=== PATIENT | male | born 1950 | race Caucasian/White ===

== ENCOUNTER 2020-06-02 17:47 | Inpatient (IN) | payer MEDICARE, OTHER ==
[~2020-06-02] VITALS: Ht 182.9 cm; Wt 132.8 kg
[2020-06-02] MEDS ORDERED: BIMA01SOL OU ×2 (18:10→22:43)
[2020-06-02] MEDS ORDERED: TRUL0.5I SC ×2 (18:10→22:43)
[2020-06-02] MEDS ORDERED: ATOR1TAB21 PO ×2 (18:10→22:42)
[2020-06-02] MEDS ORDERED: ASPI81CH33 PO (18:10)
[2020-06-02] MEDS ORDERED: VENTAER INH (18:10)
[2020-06-02] MEDS ORDERED: GLYB125TA PO ×4 (18:10→22:46)
[2020-06-02] MEDS ORDERED: METF10004 PO (18:10)
[2020-06-02] MEDS ORDERED: TIMO0.5S39 OU (18:10)
[2020-06-02] MEDS ORDERED: FOSI20TA79 PO ×2 (18:10→22:43)
[2020-06-02] MEDS ORDERED: INSULANT SC (18:10)
[2020-06-02 19:24] LABS: BASO # 0.1 10^3/uL (0.0-0.2); BASO % 0.5 % (0.0-1.0); EOS # 0.1 10^3/uL (0.0-0.5); HEMATOCRIT 44.3 % (42.0-52.0); HEMOGLOBIN 14.7 g/dl (13.5-17.5); LYMPH # 1.9 10^3/uL (1.5-5.0); LYMPH % 18.3 % (24.0-44.0); MEAN CORPUSCULAR HGB CONC 33.2 g/dl (32.0-36.5); MEAN CORPUSCULAR VOLUME 84.4 fl (80.0-96.0); MONO % 9.4 % (0.0-5.0); NEUTROPHILS # 7.2 10^3/uL (1.5-8.5); NEUTROPHILS % 70.6 % (36.0-66.0); PLATELET COUNT, AUTOMATED 189 10^3/uL (150-450); RED BLOOD COUNT 5.25 10^6/uL (4.30-6.10); WHITE BLOOD COUNT 10.1 10^3/uL (4.0-10.0)
[2020-06-02 19:55] LABS: ALBUMIN 3.9 GM/DL (3.2-5.2); ALT/SGPT 57 U/L (12-78); BILIRUBIN,DIRECT 0.2 MG/DL (0.0-0.2); BILIRUBIN,TOTAL 0.8 MG/DL (0.2-1.0); BLOOD UREA NITROGEN 10 MG/DL (7-18); CALCIUM LEVEL 9.7 MG/DL (8.8-10.2); CARBON DIOXIDE LEVEL 30 MEQ/L (21-32); CHLORIDE LEVEL 95 MEQ/L (98-107); CREATININE FOR GFR 0.75 MG/DL (0.70-1.30); GLOMERULAR FILTRATION RATE > 60.0 (>49); GLUCOSE, FASTING 210 MG/DL (70-100); LIPASE 2731 U/L (73-393); POTASSIUM SERUM 4.5 MEQ/L (3.5-5.1); SODIUM LEVEL 132 MEQ/L (136-145); TOTAL PROTEIN 7.7 GM/DL (6.4-8.2)
[2020-06-02] MEDS ORDERED: NS 1,000 ML IV ONE (20:45)
[2020-06-02] MEDS ORDERED: ISOVUE-370 76% 100ML VIAL As Ordered ONE (20:53)
[2020-06-02 22:19] LABS: TRIGLYCERIDES LEVEL 159 MG/DL (<150)
[2020-06-02] MEDS ORDERED: ASPI-161 PO (22:42)
[2020-06-02] MEDS ORDERED: INSULADS SC (22:46)
[2020-06-02] MEDS ORDERED: ACET650T61 PO (22:46)
[2020-06-02] MEDS ORDERED: TIMO0.5S3 OU (22:46)
[2020-06-02] MEDS ORDERED: METF-877 PO (22:46)
--- NOTE | 2020-06-02 23:12 | REPVR ---
PROCEDURE INFORMATION: Exam: CT Abdomen And Pelvis With Contrast Exam date and time: 06/02/2020 10:31 PM Age: 70 years old Clinical indication: Abdominal pain; Localized; Left; Additional info: L sided abd pain, elevated lipase R/O pancreatitis TECHNIQUE: Imaging protocol: Computed tomography of the abdomen and pelvis with intravenous contrast. Radiation optimization: All CT scans at this facility use at least one of these dose optimization techniques: automated exposure control; mA and/or kV adjustment per patient size (includes targeted exams where dose is matched to clinical indication); or iterative reconstruction. Contrast material: ISO; Contrast volume: 100 ml; Contrast route: INTRAVENOUS (IV); COMPARISON: No relevant prior studies available. FINDINGS: Liver: The liver attenuation is 50 Hounsfield units and the spleen is 86 Hounsfield units. Gallbladder and bile ducts: Normal. No calcified stones. No ductal dilation. Pancreas: Slight peripancreatic induration which is greatest about the tail extending along the left anterior pararenal fascia. Spleen: Normal. No splenomegaly. Adrenal glands: Normal. No mass. Kidneys and ureters: There are some left renal cysts measuring up to 14 mm with a Hounsfield measurement of 12 consistent with simple or Bosniak 1 cyst. No follow-up imaging is recommended. Stomach and bowel: Minimal sigmoid diverticulosis without diverticulitis. Appendix: Surgical clips in the right lower quadrant. The appendix is not seen and likely reflect prior appendectomy. Intraperitoneal space: Unremarkable. No free air. No significant fluid collection. Vasculature: There is minimal atherosclerotic calcification of the abdominal aorta. Lymph nodes: Unremarkable. No enlarged lymph nodes. Urinary bladder: Unremarkable as visualized. Reproductive: Unremarkable as visualized. Bones/joints: Bilateral spondylolysis of L5. Moderate degenerative spurring in the lower thoracic spine and to a lesser degree in the lumbar spine. Soft tissues: Unremarkable. IMPRESSION: 1. Minimal evidence of pancreatitis centered on the pancreatic tail. 2. Mild fatty infiltration of the liver. 3. Minimal sigmoid diverticulosis without diverticulitis. 4. Degenerative changes of the lumbar spine with bilateral spondylolysis of L5. COMMENTS: Consistent with the [employer]'s Incidental Findings Committee white paper (J Am Kelly Radiol 2018): Any incidental renal lesion less than 1 cm or classified as too small to characterize, or any incidental cystic renal lesion characterized as simple-appearing, is likely benign. No follow-up imaging is recommended for these lesions per consensus recommendations based on imaging criteria. Electronically signed by: Theo Narvaez On 06/02/2020 23:12:02 PM
[2020-06-03] MEDS ORDERED: ONDANSETRON 4MG/2ML VIAL IV PRN (00:30)
[2020-06-03] MEDS ORDERED: PERCOCET 5MG/325MG TAB PO PRN ×2 (00:30)
[2020-06-03] MEDS ORDERED: NALOXONE INJ 0.4MG/1ML VIAL (J2310 PER 1MG) IV PRN (00:30)
[2020-06-03] MEDS ORDERED: NS 1,000 ML IV ONE (00:30)
[2020-06-03] MEDS ORDERED: PERCOCET 5MG/325MG TAB PO ONE (00:30)
[2020-06-03] MEDS ORDERED: MORPHINE 4 MG/ML 1ML VIAL/SYRINGE (J2270) IV PRN (00:30)
[2020-06-03] MEDS ORDERED: KETOROLAC 30 MG/ML 1ML VIAL IV ONE (00:30)
--- NOTE | 2020-06-03 01:18 | HPEPDOC ---
[facility] Medical History & Physical Date of Admission Jun 03, 2020 Date of Service: Jun 03, 2020 History and Physical CHIEF COMPLAINT: Left upper quadrant abdominal pain since 10 PM last night HISTORY OF PRESENT ILLNESS: 70-year-old male with history of morbid obesity, BMI of 39.6. Dyslipidemia presents to emergency room with acute onset of left-sided upper quadrant abdominal pain described as sharp and constant without any radiation, without associated nausea, vomiting, constipation, fever, chills, hematuria, dysuria, urgency, frequency. After taking 2 tablets of Tylenol. Patient has no improvement in the pain prompting him to come to the emergency room. Patient had dinner earlier in the evening, went to do computer work and after a while, developed the pain. No prior episodes in the past. He denies history of gallstones or alcohol abuse. No spider bites. No history of traumatic injury to the left upper quadrant. No history of pancreatic divisum. No new medications CT abdpelvis: mild pancreatitis. lipase 2731. Hospitalist was asked to admit for pancreatitis. PAST MEDICAL HISTORY: Obesity, BMI of 39.6. Dyslipidemia . Chronic back pain. sigmoid diverticulosis, left renal cysts,Bilateral spondylolysis of L5. Moderate degenerative spurring in the lower thoracic spine and to a lesser degree in the lumbar spine. PAST SURGICAL HISTORY: Appendectomy, back surgery SOCIAL HISTORY: , retired hand trucker. Smokes one and half pack of cigarettes since he was a teenager. No alcohol use currently. Denies recreational drug use. Full code FAMILY HISTORY: Mother and father in their 80s. Mother had cancer, unknown type. Father had cancer, unknown type ALLERGIES: Please see below. REVIEW OF SYSTEMS: 10 point system review negative aside from positive findings in HPI HOME MEDICATIONS: Please see below. PHYSICAL EXAMINATION: VITAL SIGNS: See below GENERAL APPEARANCE: Awake, alert, oriented 3, no respiratory distress. No conversational dyspnea. Appears his stated age, cooperative HEENT: Anicteric. No jaundice. Pupils equally round, reactive to light and accommodation. Extra muscles are intact. No cervical lymphadenopathy, thyromegaly or jugular venous distention CARDIOVASCULAR: S1, S2, sinus rhythm, no murmurs, rubs or gallops. Nondisplaced point of maximal impulse LUNGS: Air entry is equal bilaterally. No kyphoscoliosis. Clear to auscultation bilaterally. No adventitious breath sounds. No rales ABDOMEN: Obese, soft, tender left upper quadrant epigastric region. No rebound, guarding no hepatosplenomegaly. No fluid wave. No CVA tenderness EXTREMITIES: No cyanosis, clubbing or pitting edema LABORATORY DATA: See below. IMAGING: Exam: CT Abdomen And Pelvis With Contrast Exam date and time: 06/02/2020 10:31 PM Age: 70 years old Clinical indication: Abdominal pain; Localized; Left; Additional info: L sided abd pain, elevated lipase R/O pancreatitis TECHNIQUE: Imaging protocol: Computed tomography of the abdomen and pelvis with intravenous contrast. Radiation optimization: All CT scans at this facility use at least one of these dose optimization techniques: automated exposure control; mA and/or kV adjustment per patient size (includes targeted exams where dose is matched to clinical indication); or iterative reconstruction. Contrast material: ISO; Contrast volume: 100 ml; Contrast route: INTRAVENOUS (IV); COMPARISON: No relevant prior studies available. FINDINGS: Liver: The liver attenuation is 50 Hounsfield units and the spleen is 86 Hounsfield units. Gallbladder and bile ducts: Normal. No calcified stones. No ductal dilation. Pancreas: Slight peripancreatic induration which is greatest about the tail extending along the left anterior pararenal fascia. Spleen: Normal. No splenomegaly. Adrenal glands: Normal. No mass. Kidneys and ureters: There are some left renal cysts measuring up to 14 mm with a Hounsfield measurement of 12 consistent with simple or Bosniak 1 cyst. No follow-up imaging is recommended. Stomach and bowel: Minimal sigmoid diverticulosis without diverticulitis. Appendix: Surgical clips in the right lower quadrant. The appendix is not seen and likely reflect prior appendectomy. Intraperitoneal space: Unremarkable. No free air. No significant fluid collection. Vasculature: There is minimal atherosclerotic calcification of the abdominal aorta. Lymph nodes: Unremarkable. No enlarged lymph nodes. Urinary bladder: Unremarkable as visualized. Reproductive: Unremarkable as visualized. Bones/joints: Bilateral spondylolysis of L5. Moderate degenerative spurring in the lower thoracic spine and to a lesser degree in the lumbar spine. Soft tissues: Unremarkable. IMPRESSION: 1. Minimal evidence of pancreatitis centered on the pancreatic tail. 2. Mild fatty infiltration of the liver. 3. Minimal sigmoid diverticulosis without diverticulitis. 4. Degenerative changes of the lumbar spine with bilateral spondylolysis of L5. COMMENTS: Consistent with the [employer]'s Incidental Findings Committee white paper (J Am Kelly Radiol 2018): Any incidental renal lesion less than 1 cm or classified as too small to characterize, or any incidental cystic renal lesion characterized as simple-appearing, is likely benign. No follow-up imaging is recommended for these lesions per consensus recommendations based on imaging criteria. Electronically signed by: Theo Narvaez On 06/02/2020 23:12:02 PM MICROBIOLOGY: Please see below. ASSESSMENT/PLAN: 70-year-old male with history of morbid obesity, BMI of 39.6. Dyslipidemia presents to emergency room with acute onset of left-sided upper quadrant abdominal pain described as sharp and constant without any radiation, without associated nausea, vomiting, constipation, fever, chills, hematuria, dysuria, urgency, frequency. After taking 2 tablets of Tylenol. Patient has no improvement in the pain prompting him to come to the emergency room. Patient had dinner earlier in the evening, went to do computer work and after a while, developed the pain. No prior episodes in the past. He denies history of gallst ones or alcohol abuse. No spider bites. No history of traumatic injury to the left upper quadrant. No history of pancreatic divisum. No new medications CT abdpelvis: mild pancreatitis. lipase 2731. Hospitalist was asked to admit for pancreatitis. . Acute pancreatitis Nothing by mouth status IV fluids. Hypoglycemic protocol when necessary pain meds. Check lipid profile. Patient does not have any significant elevated bilirubin to necessitate MRCP biliary ducts appear to be within normal limits. N o gallstones noted on CT abdomen and pelvis. . Active tobacco abuse more than [id number] history of smoking tobacco cessation counseling, nicotine patch, nicotine gum as needed Morbid obesity, BMI 39.6, and probable obstructive sleep apnea Monitor with continuous pulse oximetry. In light of pain medications which could increase risks of hyper Respiratory failure and hypercarbia with respiratory acidosis. Avoid sedatives Check nocturnal oximetry. Check A1c and lipid profile , Dyslipidemia Resume home medications. Check lipid profile DVT prophylaxis. Lovenox subcutaneous daily Diet nothing by mouth CODE STATUS full code Vital Signs Vital Signs Date Time Temp Pulse Resp B/P (MAP) Pulse Ox O2 Delivery O2 Flow Rate FiO2 06/02/20 20:32 06/02/20 17:48 98.1 94 20 96 Room Air Laboratory Data Labs 24H Laboratory Tests 2 06/02/20 18:56: Immature Granulocyte % (Auto) 0.2, Neutrophils (%) (Auto) 70.6H, Lymphocytes (%) (Auto) 18.3L, Monocytes (%) (Auto) 9.4H, Eosinophils (%) (Auto) 1.0, Basophils (%) (Auto) 0.5, Neutrophils # (Auto) 7.2, Lymphocytes # (Auto) 1.9, Monocytes # (Auto) 1.0H, Eosinophils # (Auto) 0.1, Basophils # (Auto) 0.1, Nucleated Red Blood Cells % (auto) 0.0, Urine Color STRAW, Urine Appearance CLEAR, Urine pH 6.0, Urine Specific [place] 1.009, Urine Protein 1+H, Urine Glucose (UA) 3+H, Urine Ketones NEGATIVE, Urine Blood NEGATIVE, Urine Nitrite NEGATIVE, Urine Bilirubin NEGATIVE, Urine Urobilinogen 0.2, Urine Leukocyte Esterase NEGATIVE, Urine WBC (Auto) 1, Urine RBC (Auto) 0, Urine Hyaline Casts (Auto) 0, Urine Bacteria (Auto) NEGATIVE, Urine Squamous Epithelial Cells 0, Urine Sperm (Auto) , Anion Gap 7L, Glomerular Filtration Rate > 60.0, Calcium Level 9.7, Total Bilirubin 0.8, Direct Bilirubin 0.2, Aspartate Amino Transf (AST/SGOT) 25, Alanine Aminotransferase (ALT/SGPT) 57, Alkaline Phosphatase 55, Total Protein 7.7, Albumin 3.9, Albumin/Globulin Ratio 1.0, Triglycerides Level 159H, Lipase 2731H 06/02/20 21:01: Coronavirus (COVID-19)(PCR) NEGATIVE CBC/BMP Laboratory Tests 06/02/20 18:56 Home Medications Scheduled Aspirin (Aspirin EC) 81 Mg Tablet.dr, 81 MG PO DAILY Atorvastatin Calcium (Atorvastatin Calcium) 20 Mg Tablet, 20 MG PO DAILY Bimatoprost (Lumigan) 0.01% 2.5ML Drops, 1 DROP OU QHS Dulaglutide (Trulicity) 1.5 Mg/0.5 Ml Pen.injctr, 1.5 MG SC QWEEK SATURDAY Fosinopril Sodium (Fosinopril Sodium) 20 Mg Tablet, 20 MG PO DAILY Glyburide (Glyburide) 1.25 Mg Tablet, 3.75 MG PO DAILY Glyburide (Glyburide) 1.25 Mg Tablet, 1.25 MG PO QPM Insulin Glargine (Lantus) 100 Unit/1 Ml Vial, 10 UNIT SC DAILY Metformin HCl (Metformin HCl) 1,000 Mg Tablet, 1,000 MG PO BID Timolol Maleate (Timoptic-Xe) 0.5% Pina.gel, 1 DROP OU DAILY Scheduled PRN Acetaminophen (Tylenol Arthritis) 650 Mg Tablet.er, 1,300 MG PO BID PRN for PAIN Allergies Coded Allergies: No Known Allergies (Unverified , 06/02/20) A-FIB/CHADSVASC A-FIB History Current/History of A-Fib/PAF?: No Current PO Anticoag Therapy: No Age/Risk Factor Scoring CHADSVASC: CHADSVASC Response (Comments) Value Age Risk Factor Age 65-74 years old 1 Gender Risk Factor Male 0 Hx of CHF No 0 Hx of HTN No 0 Hx of Stroke/TIA/or VTE No 0 Hx of Diabetes No 0 Hx of Vascular Disease No 0 Total 1 Treatment Treatment ordered: NONE LARRY LYON MD Jun 03, 2020 01:17
[2020-06-03] MEDS ORDERED: NICOTINE POLACRILEX 2 MG GUM PO PRN (01:30)
[2020-06-03] MEDS ORDERED: GLUCOSE 4GM CHEW TABLET PO PRN (01:30)
[2020-06-03] MEDS ORDERED: NS 1,000 ML IV SCH (01:30)
[2020-06-03] MEDS ORDERED: GLUCAGON INJ 1MG VIAL SC PRN (01:30)
[2020-06-03] MEDS ORDERED: ACETAMINOPHEN 650MG ER TAB (TYLENOL ARTHRITIS) PO PRN (01:30)
[2020-06-03] MEDS ORDERED: DEXTROSE 50% 50 ML SYRINGE IV PRN (01:30)
[2020-06-03] MEDS ORDERED: NICOTINE 14 MG/24 HR TRANSDERMAL TD ONE (01:45)
[2020-06-03] MEDS ORDERED: ENOXAPARIN 40MG/0.4ML SYRINGE (J1650 PER 10MG) SC ONE (01:45)
[2020-06-03 03:05] VITALS: BP 145/88
[2020-06-03 06:00] VITALS: BP 126/73
[2020-06-03] MEDS: HumaLOG INSULIN (NovoLOG) PER UNIT SC SCH ×3 (06:00→12:07)
[2020-06-03 06:28] LABS: BASO % 0.5 % (0.0-1.0); EOS # 0.1 10^3/uL (0.0-0.5); EOS % 1.5 % (0.0-3.0); HEMATOCRIT 41.6 % (42.0-52.0); HEMOGLOBIN 13.7 g/dl (13.5-17.5); LYMPH # 1.9 10^3/uL (1.5-5.0); MEAN CORPUSCULAR HEMOGLOBIN 28.2 pg (27.0-33.0); MEAN CORPUSCULAR HGB CONC 32.9 g/dl (32.0-36.5); MEAN CORPUSCULAR VOLUME 85.6 fl (80.0-96.0); MONO # 0.9 10^3/uL (0.0-0.8); MONO % 10.9 % (0.0-5.0); PLATELET COUNT, AUTOMATED 157 10^3/uL (150-450); RED BLOOD COUNT 4.86 10^6/uL (4.30-6.10); WHITE BLOOD COUNT 7.9 10^3/uL (4.0-10.0)
[2020-06-03 07:09] LABS: ALBUMIN 3.3 GM/DL (3.2-5.2); ALT/SGPT 45 U/L (12-78); BILIRUBIN,TOTAL 0.8 MG/DL (0.2-1.0); BLOOD UREA NITROGEN 11 MG/DL (7-18); CALCIUM LEVEL 8.5 MG/DL (8.8-10.2); CARBON DIOXIDE LEVEL 27 MEQ/L (21-32); CHLORIDE LEVEL 103 MEQ/L (98-107); CK-MB VALUE MASS 2.8 NG/ML (<3.6); CPK CREATINE PHOSPHOKINASE 173 U/L (39-308); CREATININE FOR GFR 0.62 MG/DL (0.70-1.30); GLOMERULAR FILTRATION RATE > 60.0 (>49); GLUCOSE, FASTING 198 MG/DL (70-100); LIPASE 1931 U/L (73-393); MB/CK RELATIVE INDEX 1.62 (< OR =4); POTASSIUM SERUM 3.7 MEQ/L (3.5-5.1); SODIUM LEVEL 136 MEQ/L (136-145); TOTAL PROTEIN 6.8 GM/DL (6.4-8.2); TROPONIN I < 0.02 NG/ML (< 0.10)
[2020-06-03] MEDS ORDERED: KETOROLAC 30 MG/ML 1ML VIAL IV SCH (08:00)
[2020-06-03] MEDS ORDERED: D5W/0.45% SODIUM CHLORIDE 1,000 ML IV SCH (08:30)
[2020-06-03] MEDS ORDERED: ASPIRIN 81 MG ENTERIC TAB PO SCH (09:00)
[2020-06-03] MEDS ORDERED: PANTOPRAZOLE 40MG VIAL (C9113 PER 1) IV SCH (09:00)
[2020-06-03] MEDS ORDERED: FOSINOPRIL 20 MG TAB PO SCH (09:00)
[2020-06-03] MEDS ORDERED: ATORVASTATIN 20 MG TAB PO SCH (09:00)
[2020-06-03] MEDS ORDERED: TIMOLOL XE GFS 0.5% OPHTH 5 ML OU SCH (09:00)
[2020-06-03] MEDS ORDERED: ENOXAPARIN 40MG/0.4ML SYRINGE (J1650 PER 10MG) SC SCH (09:00)
[2020-06-03 10:00] VITALS: O2SAT 95
[2020-06-03] MEDS ORDERED: ATOR40TA75 PO (10:02)
[2020-06-03] MEDS ORDERED: PANT40TA29 PO (10:02)
[2020-06-03] MEDS ORDERED: PERCOCET PO (10:02)
[2020-06-03 10:10] VITALS: BP 147/92
--- NOTE | 2020-06-03 10:17 | DS.PDOC ---
Discharge Summary General Date of Admission Jun 03, 2020 at 00:24 Date of Discharge 06/03/20 Attending Physician: ALEJANDRA QUINTANA MD Discharge Summary PROCEDURES PERFORMED DURING STAY: None ADMITTING DIAGNOSES: acute pancreatitis Smoker Morbid obesity Dyslipidemia DISCHARGE DIAGNOSES: acute pancreatitis Smoker Morbid obesity Dyslipidemia COMPLICATIONS/CHIEF COMPLAINT: Pancreatitis. HISTORY OF PRESENT ILLNESS: 70-year-old male with history of morbid obesity, BMI of 39.6. Dyslipidemia presents to emergency room with acute onset of left-sided upper quadrant abdominal pain described as sharp and constant without any radiation, without associated nausea, vomiting, constipation, fever, chills, hematuria, dysuria, urgency, frequency. After taking 2 tablets of Tylenol. P saba has no improvement in the pain prompting him to come to the emergency room. Patient had dinner earlier in the evening, went to do computer work and after a while, developed the pain. No prior episodes in the past. He denies history of gallstones or alcohol abuse. No spider bites. No history of traumatic injury to the left upper quadrant. No history of pancreatic divisum. No new medications CT abdpelvis: mild pancreatitis. lipase 2731. Hospitalist was asked to admit for pancreatitis. HOSPITAL COURSE: Mr. Vance was admitted for management of acute pancreatitis, lipase of 2700, triglycerides 159. He was made nothing by mouth, given adequate pain control with IV and by mouth medication. CT imaging of the abdomen did not reveal gallstones, but showed mild pancreatitis . No bilirubin elevation was noted. Liver enzymes were within normal limits. On the morning of discharge he reported mild pain to palpation and physical examination. He was given a clear liquid diet, which he tolerated well. Discussed with general surgery, recommended to discharge patient home with by mouth pain medication and clear liquid diet. She was instructed to advance diet slowly, first to full liquid. Requested to follow-up with his primary care doctor within 3-5 days. Further suspect given the significant abdominal obesity, obstructive sleep apnea. Patient was monitored overnight, did not desaturate below 94% on room air. Requested for outpatient sleep study to be referred by primary care doctor. DISCHARGE MEDICATIONS: Please see below. ALLERGIES: Please see below. PHYSICAL EXAMINATION ON DISCHARGE: VITAL SIGNS: please see below General: NAD, comfortable HEENT: PERRLA, EOMI, sclerae clear Neck: supple, normal ROM, no JVD Respiratory: lungs CTAB, no wheeze, no rales, no crackles CVS: RRR, normal S1, S2, no murmurs Abdo: Obese, soft, tenderness to palpation in the right upper quadrant, mild. No rebound tenderness. No rigidity, no guarding. Extremities: no edema, pulses 2+ MSK: no joint deformities, normal ROM Neuro: no focal neuro deficits, moving all 4 extremities, CN2-12 intact. S trength 5/5 in all 4 extremities. No nystagmus. Psych: calm, cooperative, AAO x 3 LABORATORY DATA: Please see below. IMAGING: CT abdomen and pelvis with IV contrast (06/02/20) 1. Minimal evidence of pancreatitis centered on the pancreatic tail. 2. Mild fatty infiltration of the liver. 3. Minimal sigmoid diverticulosis without diverticulitis. 4. Degenerative changes of the lumbar spine with bilateral spondylolysis of L5. PROGNOSIS: Good ACTIVITY: As tolerated DIET: Liquid DISCHARGE PLAN: Discharge home, with clear liquid diet. Oral pain control. Follow up with primary care doctor within 3-5 days. DISPOSITION: . DISCHARGE INSTRUCTIONS: 1. Please follow-up with your primary care doctor within 3-5 days 2. Please taking medications as prescribed. 3. If he developed bleeding, chest pain, shortness of breath, seizures, nausea, fevers, or otherwise worsening of your symptoms, please call 911 or return to the nearest emergency room ITEMS TO FOLLOWUP ON ON OUTPATIENT: 1. lipid panel 2. Please refer for outpatient sleep study. DISCHARGE CONDITION: Stable TIME SPENT ON DISCHARGE: Greater than 30 minutes. Vital Signs/I&Os Vital Signs Date Time Temp Pulse Resp B/P (MAP) Pulse Ox O2 Delivery O2 Flow Rate FiO2 06/03/20 06:00 98.0 85 18 126/73 (90) 95 Room Air I&O- Last 24 Hours up to 6 AM 06/03/20 05:59 Intake Total 2000 ml Output Total 0 ml Balance 2000 ml Laboratory Data Labs 24H Laboratory Tests 2 06/02/20 18:56: Immature Granulocyte % (Auto) 0.2, Neutrophils (%) (Auto) 70.6H, Lymphocytes (%) (Auto) 18.3L, Monocytes (%) (Auto) 9.4H, Eosinophils (%) (Auto) 1.0, Basophils (%) (Auto) 0.5, Neutrophils # (Auto) 7.2, Lymphocytes # (Auto) 1.9, Monocytes # (Auto) 1.0H, Eosinophils # (Auto) 0.1, Basophils # (Auto) 0.1, Nucleated Red Blood Cells % (auto) 0.0, Urine Color STRAW, Urine Appearance CLEAR, Urine pH 6.0, Urine Specific [place] 1.009, Urine Protein 1+H, Urine Glucose (UA) 3+H, Urine Ketones NEGATIVE, Urine Blood NEGATIVE, Urine Nitrite NEGATIVE, Urine Bilirubin NEGATIVE, Urine Urobilinogen 0.2, Urine Leukocyte Esterase NEGATIVE, Urine WBC (Auto) 1, Urine RBC (Auto) 0, Urine Hyaline Casts (Auto) 0, Urine [place] (Auto) NEGATIVE, Urine Squamous Epithelial Cells 0, Urine Sperm (Auto) , Anion Gap 7L, Glomerular Filtration Rate > 60.0, Calcium Level 9.7, Total Bilirubin 0.8, Direct Bilirubin 0.2, Aspartate Amino Transf (AST/SGOT) 25, Alanine Aminotransferase (ALT/SGPT) 57, Alkaline Phosphatase 55, Total Protein 7.7, Albumin 3.9, Albumin/Globulin Ratio 1.0, Triglycerides Level 159H, Lipase 2731H 06/02/20 21:01: Coronavirus (COVID-19)(PCR) NEGATIVE 06/03/20 02:18: Bedside Glucose (Misc Panel) 200H 06/03/20 03:13: Bedside Glucose (Misc Panel) 194H 06/03/20 05:38: Bedside Glucose (Misc Panel) 201H 06/03/20 06:05: Immature Granulocyte % (Auto) 0.1, Neutrophils (%) (Auto) 63.0, Lymphocytes (%) (Auto) 24.0, Monocytes (%) (Auto) 10.9H, Eosinophils (%) (Auto) 1.5, Basophils (%) (Auto) 0.5, Neutrophils # (Auto) 5.0, Lymphocytes # (Auto) 1.9, Monocytes # (Auto) 0.9H, Eosinophils # (Auto) 0.1, Basophils # (Auto) 0.0, Nucleated Red Blood Cells % (auto) 0.0, Anion Gap 6L, Glomerular Filtration Rate > 60.0, Estimated Mean Plasma Glucose 212H, Hemoglobin A1c 9.0, Calcium Level 8.5L, Total Bilirubin 0.8, Aspartate Amino Transf (AST/SGOT) 15, Alanine Aminotransferase (ALT/SGPT) 45, Alkaline Phosphatase 42L, Total Creatine Kinase 173, Creatine Kinase MB 2.8, Creatine Kinase MB Relative Index 1.62, Troponin I < 0.02, Total Protein 6.8, Albumin 3.3, Albumin/Globulin Ratio 0.9, Lipase 1931H, Thyroid Stimulating Hormone (TSH) 2.780 CBC/BMP Laboratory Tests 06/02/20 18:56 06/03/20 06:05 FSBS Laboratory Tests Test 06/03/20 02:18 06/03/20 03:13 06/03/20 05:38 Range/Units Bedside Glucose (Misc Panel) 200 194 201 80-115 MG/DL Discharge Medications Scheduled Aspirin (Aspirin EC) 81 Mg Tablet.dr, 81 MG PO DAILY, (Reported) Atorvastatin Calcium (Atorvastatin Calcium) 20 Mg Tablet, 20 MG PO DAILY, (Reported) Atorvastatin Calcium (Atorvastatin Calcium) 40 Mg Tablet, 1 TAB PO QPM Bimatoprost (Lumigan) 0.01% 2.5ML Drops, 1 DROP OU QHS, (Reported) Dulaglutide (Trulicity) 1.5 Mg/0.5 Ml Pen.injctr, 1.5 MG SC QWEEK, (Reported) SATURDAY Fosinopril Sodium (Fosinopril Sodium) 20 Mg Tablet, 20 MG PO DAILY, (Reported) Glyburide (Glyburide) 1.25 Mg Tablet, 3.75 MG PO DAILY, (Reported) Glyburide (Glyburide) 1.25 Mg Tablet, 1.25 MG PO QPM, (Reported) Insulin Glargine (Lantus) 100 Unit/1 Ml Vial, 10 UNIT SC DAILY, (Reported) Metformin HCl (Metformin HCl) 1,000 Mg Tablet, 1,000 MG PO BID, (Reported) Pantoprazole Sodium (Pantoprazole Sodium) 40 Mg Tablet.dr, 1 TAB PO DAILY Timolol Maleate (Timoptic-Xe) 0.5% Pina.gel, 1 DROP OU DAILY, (Reported) Scheduled PRN Acetaminophen (Tylenol Arthritis) 650 Mg Tablet.er, 1,300 MG PO BID PRN for PAIN, (Reported) Oxycodone/Acetaminophen (Oxycodone-Acetaminophen 5-325) 1 Each Tablet, 1 TAB PO Q4HP PRN for MODERATE PAIN (PS 5-7) Allergies Coded Allergies: No Known Allergies (Unverified , 06/02/20) ALEJANDRA QUINTANA MD Jun 03, 2020 10:17
[2020-06-03 10:49] LABS: CHOLESTEROL LEVEL 117 MG/DL (<200); CHOLESTEROL RISK RATIO 2.659 (<5); HDL CHOLESTEROL 44 MG/DL (>40); LDL CHOLESTEROL 47.2 MG/DL (<100); NON-HDL-C 73 MG/DL; TRIGLYCERIDES LEVEL 129 MG/DL (<150)
[2020-06-03] MEDS ORDERED: NICOTINE 14 MG/24 HR TRANSDERMAL TD SCH (21:00)
== END 2020-06-03 14:09 | disposition home or self-care (01) | DRG 440 ==
LOC: M ED 17:47 → M ED INP 06-03 00:24 → ENRESERV 06-03 01:13 → M MSPAV 06-03 03:05
PROVIDERS: ADMIT General Practice; ATTEND Family Medicine
DX: K85.90 Acute pancreatitis without necrosis or infection, unspecified (principal); E66.01 Morbid (severe) obesity due to excess calories; F17.200 Nicotine dependence, unspecified, uncomplicated; E78.5 Hyperlipidemia, unspecified; Z68.39 Body mass index [BMI] 39.0-39.9, adult; Z79.899 Other long term (current) drug therapy; Z79.82 Long term (current) use of aspirin; K57.30 Diverticulosis of large intestine without perforation or abscess without bleeding

== ENCOUNTER → 2020-08-17 | Outpatient (CLI) | payer MEDICARE, OTHER ==
[~2020-08-17] MED LIST: ACET650T61 PO; ASPI-161 PO; ASPI81CH33 PO; ATOR1TAB21 PO; ATOR40TA75 PO; BIMA01SOL OU; FOSI20TA79 PO; GLYB125TA PO; INSULADS SC; INSULANT SC; METF-877 PO; METF10004 PO; PANT40TA29 PO; PERCOCET PO; TIMO0.5S3 OU; TIMO0.5S39 OU; TRUL0.5I SC; VENTAER INH
--- NOTE | 2020-08-17 10:09 | REP ---
INDICATION: LUNG SCREENING COMPARISON: 05/08/2016 TECHNIQUE: Axial noncontrast images from the thoracic inlet to the upper abdomen using low-dose lung screening technique (LDCT). FINDINGS: Bilateral lung parrish are well aerated and demonstrate mild chronic appearing changes. No acute consolidation, significant nodule or mass lesion. No effusion. No pneumothorax. Tracheobronchial tree is patent. IMPRESSION: Mild chronic appearing changes. Lung-RADS category 1. Management recommendations include annual low-dose CT surveillance. <Electronically signed by Hudson Iniguez > 08/17/20 [id number]
== END ==
LOC: M RAD 09:23
PROVIDERS: ATTEND Family Medicine
DX: Z12.2 Encounter for screening for malignant neoplasm of respiratory organs (principal); F17.210 Nicotine dependence, cigarettes, uncomplicated

== ENCOUNTER 2021-04-11 13:16 | Emergency (ER) | payer MEDICARE, OTHER ==
[~2021-04-11] VITALS: Ht 182.9 cm; Wt 134.7 kg
[2021-04-11] MEDS ORDERED: HUMA100I3 SC (13:59)
[2021-04-11] MEDS ORDERED: dexameTHASONE 20MG/5ML VIAL (J1100 PER 1MG) IV ONE (16:30)
[2021-04-11] MEDS: COMBIVENT RESPIMAT 100-20MCG INHALER 4GM INH SCH ×3 (16:50→17:59)
--- NOTE | 2021-04-11 17:01 | REP ---
INDICATION: DYSPNEA/COUGH. COMPARISON: Comparison chest x-ray April 27, 2009. TECHNIQUE: Portable upright AP chest radiograph. FINDINGS: Moderate cardiac enlargement is observed, increased when compared with the 2009 prior study pulmonary vasculature is congested in cephalized. There is no evidence of pleural effusion or diffuse pulmonary edema. There are degenerative changes in the thoracic spine and aorta. There are a few Dorinda B lines vol. No focal infiltrate is appreciated. IMPRESSION: Moderate cardiac enlargement. Vascular congestion and cephalization consistent with CHF. Few Dorinda lines are seen in the bases but there is no evidence of diffuse pulmonary edema or pleural effusion. <Electronically signed by Constantine Quigley > 04/11/21 [id number]
[2021-04-11 17:20] LABS: BASO # 0.1 10^3/uL (0.0-0.2); BASO % 1.2 % (0.0-1.0); EOS # 0.1 10^3/uL (0.0-0.5); EOS % 1.6 % (0.0-3.0); HEMATOCRIT 44.7 % (42.0-52.0); HEMOGLOBIN 14.1 g/dl (13.5-17.5); LYMPH # 1.8 10^3/uL (1.5-5.0); LYMPH % 27.9 % (24.0-44.0); MEAN CORPUSCULAR HEMOGLOBIN 26.4 pg (27.0-33.0); MEAN CORPUSCULAR HGB CONC 31.5 g/dl (32.0-36.5); MEAN CORPUSCULAR VOLUME 83.7 fl (80.0-96.0); MONO # 0.6 10^3/uL (0.0-0.8); MONO % 8.9 % (2.0-8.0); NEUTROPHILS # 3.9 10^3/uL (1.5-8.5); NEUTROPHILS % 60.2 % (36.0-66.0); PLATELET COUNT, AUTOMATED 205 10^3/uL (150-450); RED BLOOD COUNT 5.34 10^6/uL (4.30-6.10); WHITE BLOOD COUNT 6.4 10^3/uL (4.0-10.0)
[2021-04-11 17:57] LABS: BLOOD UREA NITROGEN 12 MG/DL (7-18); CALCIUM LEVEL 9.5 MG/DL (8.8-10.2); CARBON DIOXIDE LEVEL 29 MEQ/L (21-32); CHLORIDE LEVEL 100 MEQ/L (98-107); CK-MB VALUE MASS 5.1 NG/ML (<3.6); CPK CREATINE PHOSPHOKINASE 252 U/L (39-308); CREATININE FOR GFR 0.73 MG/DL (0.70-1.30); GLOMERULAR FILTRATION RATE > 60.0 (>49); GLUCOSE, FASTING 151 MG/DL (70-100); MB/CK RELATIVE INDEX 2.02 (< OR =4); NT-PRO BNP 480 PG/ML (<125); POTASSIUM SERUM 5.4 MEQ/L (3.5-5.1); SODIUM LEVEL 135 MEQ/L (136-145); TROPONIN I 0.02 NG/ML (< 0.10)
[2021-04-11] MEDS ORDERED: FUROSEMIDE 40MG/4ML VIAL (J1940) IV ONE (18:05)
[2021-04-11] MEDS ORDERED: CARVedilol 6.25 MG TAB PO ONE (18:35)
[2021-04-11] MEDS ORDERED: CARV6.25 PO (18:37)
[2021-04-11] MEDS ORDERED: TORS5TAB2 PO (18:37)
[2021-04-11] MEDS ORDERED: ISOVUE-370 76% 100ML VIAL As Ordered ONE (18:44)
[2021-04-11 19:10] VITALS: BP 183/90
--- NOTE | 2021-04-11 19:26 | REPVR ---
PROCEDURE INFORMATION: Exam: CTA Chest With Contrast Exam date and time: 04/11/2021 6:56 PM Age: 70 years old Clinical indication: Pain; Chest pressure; Additional info: R/O pe TECHNIQUE: Imaging protocol: Computed tomographic angiography of the chest with contrast. 3D rendering (Not supervised by radiologist): MIP and/or 3D reconstructed images were created by the technologist. Radiation optimization: All CT scans at this facility use at least one of these dose optimization techniques: automated exposure control; mA and/or kV adjustment per patient size (includes targeted exams where dose is matched to clinical indication); or iterative reconstruction. Contrast material: ISOVUE 370; Contrast volume: 75 ml; Contrast route: INTRAVENOUS (IV); COMPARISON: [facility] PORTABLE CHEST X-RAY 04/11/2021 4:34 PM FINDINGS: Pulmonary arteries: There are no pulmonary emboli. Aorta: There is mild atherosclerosis in the thoracic aorta. 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 maximally. There is no dissection or saccular component. Lungs: Calcified granuloma right middle lobe. Pleural spaces: Small bilateral pleural effusions. Heart: Cardiomegaly. Lymph nodes: Unremarkable. No enlarged lymph nodes. Bones/joints: The spine demonstrates moderate degenerative changes. Soft tissues: Unremarkable. IMPRESSION: 1. Small bilateral pleural effusions. 2. 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 maximally. There is no dissection or saccular component. 3. Cardiomegaly. 4. There are no pulmonary emboli. 5. No acute pulmonary parenchymal infiltrates. Electronically signed by: Gael Land On 04/11/2021 19:26:41 PM
[2021-04-11 20:18] VITALS: BP 182/90
--- NOTE | 2021-04-11 20:21 | ECGEPIP ---
[facility] - ED Test Date: 2021-04-11 Pat Name: ALESSANDRO MICHELLE Department: Room: - Gender: Male Front End Engineer: WENDY : 1950 Requested By: Kody Suh Order Number: [id number] Reading MD: Estella Mccrary Measurements Intervals [place] Rate: 87 P: 31 KS: 200 QRS: -47 QRSD: 132 T: 97 QT: 402 QTc: 483 Interpretive Statements Normal sinus rhythm Left axis deviation Nonspecific intraventricular block possible prior inferior infarct T wave abnormality, consider ischemia No prior Electronically Signed on 04-11-2021 20:21:06 EDT by Estella Mccrary
--- NOTE | 2021-04-12 12:12 | ED PDOC ---
Post-Departure Follow-Up cta chest faxed to dr pabon for fu Matt [place] MD Apr 12, 2021 12:12
== END 2021-04-11 20:19 | disposition home or self-care (01) ==
LOC: M ED 13:16
DX: I50.9 Heart failure, unspecified (principal); E11.9 Type 2 diabetes mellitus without complications; I10 Essential (primary) hypertension; E78.5 Hyperlipidemia, unspecified; J44.9 Chronic obstructive pulmonary disease, unspecified; E66.9 Obesity, unspecified; M51.37 Other intervertebral disc degeneration, lumbosacral region; F17.200 Nicotine dependence, unspecified, uncomplicated; I51.7 Cardiomegaly; Z79.82 Long term (current) use of aspirin; Z79.4 Long term (current) use of insulin; Z79.899 Other long term (current) drug therapy
CPT/HCPCS: 71045; 71275; 80048; 82550; 82553; 83880; 84484; 85025; 87798; 93005; 93041; 94640; 94664; 94760; 96374; 96375; 99284; J1100; J1940; Q9967

== ENCOUNTER → 2021-04-17 | Outpatient (REF) | payer MEDICARE, OTHER ==
[~2021-04-17] MED LIST changes: +CARV6.25 PO; +HUMA100I3 SC; +TORS5TAB2 PO
== END ==
LOC: M LAB REF 15:58
PROVIDERS: ATTEND Internal Medicine
DX: R07.9 Chest pain, unspecified (principal)

== ENCOUNTER → 2021-04-28 | Outpatient (CLI) | payer MEDICARE, OTHER ==
--- NOTE | 2021-04-29 16:16 | ECHO ---
ECHOCARDIOGRAM DATE OF PROCEDURE: 04/28/2021 Age: 70 Gender: Height: 71 inches Weight: 300 pounds Body surface area: 2.51 m2. Outpatient. REFERRING PHYSICIAN: Dr. Arjun King INDICATION: Shortness of breath. MEASUREMENTS: 2D Measurements: RV - 4.8 cm LV - 6.2 cm Septum 1.3 cm Posterior wall 1.3 cm Aortic root 3.9 cm Ascending aorta 4.2 cm Aortic arch 4.2 cm Descending aorta 3.0 cm LA - 4.7 cm LVEF 45% Doppler Measurements: AV - 1.32 m/s LVOT - 0.67 m/s LVOT diameter 2.3 cm MV-E 101, A 85, E/A ratio 1.2 Early mitral deceleration time 130 msec E prime medial 4.7 A prime medial 8.2 E prime lateral 4.6 Average E/E prime ratio 21.7/PCWP 28.8 mmHg PV - 0.6 m/s Pulmonary artery acceleration time 77 msec PASP 47 mmHg IVC - 2.1 cm COMMENTS: Normal sinus rhythm with left bundle branch block. Technical difficult study in light the patient's body habitus, but some diagnostically useful information was still obtained. M-mode and 2-dimensional echocardiography was performed with pulse, continuous wave, color flow, and tissue Doppler studies. Mild to moderately dilated left ventricle with mild symmetrical hypertrophy. Septal and apical wall motion abnormality related to left bundle branch block, but other wall motion was normal. At least moderately dilated left atrium with grade 2 LV diastolic dysfunction and significantly elevated estimated mean left atrial pressure. Moderately dilated right heart chambers with degree of right ventricular free wall hypokinesis and Doppler evidence of at least a moderate pulmonary hypertension. IVC size upper limits of normal with adequate respiratory collapse, in keeping with central venous pressure of perhaps 10 mmHg. Aortic root was upper limits of normal in size with mildly dilated ascending aorta and aortic arch but normal descending thoracic aortic diameter. Three equal size aortic cusps with slight thickening but no valvular dysfunction. Mild mitral annular thickening with adequate leaflet excursion and no posterior systolic buckling. Very mild mitral insufficiency. Normal-appearing tricuspid valve with trace insufficiency. Unable to detect any intracardiac mass. Small posterior pericardial effusion without any sign of cardiac chamber compression. MTDD
== END ==
LOC: M CARPUL 08:37
PROVIDERS: ATTEND Internal Medicine
DX: R06.02 Shortness of breath (principal)

== ENCOUNTER → 2021-06-05 | Outpatient (CLI) | payer MEDICARE, OTHER ==
[2021-06-05 16:43] LABS: ALBUMIN 3.7 GM/DL (3.2-5.2); BLOOD UREA NITROGEN 12 MG/DL (7-18); CALCIUM LEVEL 10.2 MG/DL (8.8-10.2); CARBON DIOXIDE LEVEL 32 MEQ/L (21-32); CHLORIDE LEVEL 99 MEQ/L (98-107); CREATININE FOR GFR 0.64 MG/DL (0.70-1.30); GLOMERULAR FILTRATION RATE > 60.0 (>49); GLUCOSE, FASTING 122 MG/DL (70-100); NT-PRO BNP 117 PG/ML (<125); PHOSPHORUS LEVEL 3.5 MG/DL (2.5-4.9); POTASSIUM SERUM 4.5 MEQ/L (3.5-5.1); SODIUM LEVEL 136 MEQ/L (136-145)
== END ==
LOC: M PLALAB 13:24
PROVIDERS: ATTEND Internal Medicine Cardiovascular Disease
DX: I50.42 Chronic combined systolic (congestive) and diastolic (congestive) heart failure (principal)

== ENCOUNTER → 2021-06-16 | Outpatient (CLI) | payer MEDICARE, OTHER ==
[2021-06-16 16:45] LABS: ALBUMIN 3.7 GM/DL (3.2-5.2); BLOOD UREA NITROGEN 17 MG/DL (7-18); CALCIUM LEVEL 9.5 MG/DL (8.8-10.2); CARBON DIOXIDE LEVEL 29 MEQ/L (21-32); CHLORIDE LEVEL 103 MEQ/L (98-107); CREATININE FOR GFR 0.76 MG/DL (0.70-1.30); GLOMERULAR FILTRATION RATE > 60.0 (>49); GLUCOSE, FASTING 131 MG/DL (70-100); NT-PRO BNP 52 PG/ML (<125); PHOSPHORUS LEVEL 3.5 MG/DL (2.5-4.9); POTASSIUM SERUM 4.5 MEQ/L (3.5-5.1); SODIUM LEVEL 140 MEQ/L (136-145)
== END ==
LOC: M WUC 12:29
PROVIDERS: ATTEND Internal Medicine Cardiovascular Disease
DX: I50.42 Chronic combined systolic (congestive) and diastolic (congestive) heart failure (principal)

== ENCOUNTER → 2021-06-23 | Outpatient (CLI) | payer MEDICARE, OTHER ==
--- NOTE | 2021-06-27 14:14 | SLEEPHOME ---
DATE: 06/23/2021 ORDERED BY: Dr. Ayala Diagnostic home sleep testing was performed due to concern for the obstructive sleep apnea syndrome in this patient with a history of pulmonary hypertension. For testing, a NOX T3 respiratory monitoring device was used. Continuous record was made of pulse, oxygen saturation, air flow, chest and abdominal strain, and body position. There was 9 hours and 59 minutes of data reviewed. There was 8 hours and 8 minutes marked as time in bed. During the interval marked time in bed, there were 193 respiratory events identified of 10 seconds in duration or greater for a respiratory event index of 23.7. Baseline pulse rate was 71. Pulse ranged 46-102. Baseline saturation was 91%. Saturations fell to 72% with an oxygen desaturation index of 19.3. Testing was performed in both the supine and nonsupine positions. IMPRESSION: Abnormal home sleep testing with repetitive respiratory events and oxygen desaturations to 72% and a respiratory event index of 23.7 is consistent with the obstructive sleep apnea syndrome. RECOMMENDATION: The patient should be encouraged to undergo formal sleep evaluation.
== END ==
LOC: M SLEEP HO 09:52
PROVIDERS: ATTEND Internal Medicine Cardiovascular Disease
DX: I27.20 Pulmonary hypertension, unspecified (principal); G47.8 Other sleep disorders

== ENCOUNTER → 2021-09-28 | Outpatient (REF) | payer MEDICARE, OTHER | LOC: M LAB REF 12:46 | PROVIDERS: ATTEND Family Medicine | DX: I50.42 Chronic combined systolic (congestive) and diastolic (congestive) heart failure (principal) ==

== ENCOUNTER → 2023-08-01 | Outpatient (REF) | payer MEDICARE, OTHER ==
[2023-08-01 19:37] LABS: PERCENT SATURATION 17.1 % (19.7-50.0)
[2023-08-01 19:39] LABS: FERRITIN 11.7 NG/ML (10.5-307.3)
== END ==
LOC: M LAB REF 16:24
PROVIDERS: ATTEND Family Medicine
DX: D64.9 Anemia, unspecified (principal)

== ENCOUNTER → 2023-08-06 | Outpatient (CLI) | payer MEDICARE, OTHER ==
[2023-08-06 15:22] LABS: ALBUMIN 3.8 G/DL (3.2-5.2); BLOOD UREA NITROGEN 20 MG/DL (9-23); CALCIUM LEVEL 9.8 MG/DL (8.3-10.6); CARBON DIOXIDE LEVEL 32 MMOL/L (20-31); CHLORIDE LEVEL 99 MMOL/L (98-107); CREATININE FOR GFR 0.77 MG/DL (0.70-1.30); GLOMERULAR FILTRATION RATE > 60.0 (>42); GLUCOSE, FASTING 249 MG/DL (74-106); PHOSPHORUS LEVEL 4.7 MG/DL (2.4-5.1); POTASSIUM SERUM 4.6 MMOL/L (3.5-5.1); SODIUM LEVEL 138 MMOL/L (136-145)
== END ==
LOC: M WUC 09:04
PROVIDERS: ATTEND Internal Medicine Cardiovascular Disease
DX: I50.22 Chronic systolic (congestive) heart failure (principal); I50.23 Acute on chronic systolic (congestive) heart failure

== ENCOUNTER → 2023-09-02 | Outpatient (CLI) | payer MEDICARE, OTHER ==
[2023-09-02 13:21] LABS: BASO # 0.1 10^3/uL (0.0-0.2); BASO % 1.7 % (0.0-1.0); EOS # 0.1 10^3/uL (0.0-0.5); EOS % 1.7 % (0.0-3.0); HEMATOCRIT 43.1 % (42.0-52.0); HEMOGLOBIN 13.7 g/dl (13.5-17.5); LYMPH # 1.8 10^3/uL (1.5-5.0); LYMPH % 34.2 % (24.0-44.0); MEAN CORPUSCULAR HEMOGLOBIN 25.8 pg (27.0-33.0); MEAN CORPUSCULAR HGB CONC 31.8 g/dl (32.0-36.5); MEAN CORPUSCULAR VOLUME 81.3 fl (80.0-96.0); MONO # 0.4 10^3/uL (0.0-0.8); MONO % 7.7 % (2.0-8.0); NEUTROPHILS # 2.8 10^3/uL (1.5-8.5); NEUTROPHILS % 54.5 % (36.0-66.0); PLATELET COUNT, AUTOMATED 228 10^3/uL (150-450); WHITE BLOOD COUNT 5.2 10^3/uL (4.0-10.0)
[2023-09-02 13:44] LABS: BLOOD UREA NITROGEN 18 MG/DL (9-23); CALCIUM LEVEL 9.1 MG/DL (8.3-10.6); CARBON DIOXIDE LEVEL 30 MMOL/L (20-31); CHLORIDE LEVEL 100 MMOL/L (98-107); CREATININE FOR GFR 0.74 MG/DL (0.70-1.30); GLOMERULAR FILTRATION RATE > 60.0 (>42); GLUCOSE, FASTING 239 MG/DL (74-106); POTASSIUM SERUM 4.5 MMOL/L (3.5-5.1); SODIUM LEVEL 136 MMOL/L (136-145)
== END ==
LOC: M WUC 10:14
PROVIDERS: ATTEND Internal Medicine Cardiovascular Disease
DX: I50.32 Chronic diastolic (congestive) heart failure (principal)

== ENCOUNTER → 2023-09-17 | Outpatient (CLI) | payer MEDICARE, OTHER ==
[~2023-09-17] MED LIST changes: -ASPI-161 PO; +ASPI-615 PO
== END ==
LOC: M RAD 09:20
PROVIDERS: ATTEND Family Medicine
DX: Z12.2 Encounter for screening for malignant neoplasm of respiratory organs (principal); F17.210 Nicotine dependence, cigarettes, uncomplicated; I25.10 Atherosclerotic heart disease of native coronary artery without angina pectoris

== ENCOUNTER 2024-01-29 07:47 | Day surgery (SDC) | payer MEDICARE, OTHER ==
[~2024-01-29] VITALS: Ht 180.3 cm; Wt 127.7 kg
[~2024-01-29 07:47] MED LIST changes: +LIDOCAINE 2% 100MG/5ML SDV (FOR ANES.) As Ordered ONE; +fentaNYL 100 MCG/2 ML INJECTION As Ordered ONE; +propofoL 500 MG/50 ML VIAL As Ordered ONE
[2024-01-29] MEDS: NS 1,000 ML IV ONE (08:06)
[2024-01-29 09:35] VITALS: TEMP 98.6
[2024-01-29 09:56] VITALS: BP 111/68; O2SAT 96
== END 2024-01-29 10:12 | disposition home or self-care (01) ==
LOC: M OPP 07:47
PROVIDERS: ATTEND Surgery
DX: D12.6 Benign neoplasm of colon, unspecified (principal); K57.30 Diverticulosis of large intestine without perforation or abscess without bleeding; D50.9 Iron deficiency anemia, unspecified; K29.60 Other gastritis without bleeding; E11.9 Type 2 diabetes mellitus without complications; I10 Essential (primary) hypertension; F17.200 Nicotine dependence, unspecified, uncomplicated; Z79.02 Long term (current) use of antithrombotics/antiplatelets; Z79.4 Long term (current) use of insulin; Z79.82 Long term (current) use of aspirin; Z79.891 Long term (current) use of opiate analgesic; Z79.899 Other long term (current) drug therapy
CPT/HCPCS: 43239; 45385; 88305; J3010

== ENCOUNTER → 2024-02-13 | Outpatient (CLI) | payer MEDICARE, OTHER ==
[~2024-02-13] MED LIST changes: -LIDOCAINE 2% 100MG/5ML SDV (FOR ANES.) As Ordered ONE; -fentaNYL 100 MCG/2 ML INJECTION As Ordered ONE; -propofoL 500 MG/50 ML VIAL As Ordered ONE
[2024-02-13 13:02] LABS: HEMATOCRIT 43.5 % (42.0-52.0); HEMOGLOBIN 13.9 g/dl (13.5-17.5); MEAN CORPUSCULAR HEMOGLOBIN 27.1 pg (27.0-33.0); PLATELET COUNT, AUTOMATED 193 10^3/uL (150-450); RED BLOOD COUNT 5.12 10^6/uL (4.30-6.10); WHITE BLOOD COUNT 4.8 10^3/uL (4.0-10.0)
[2024-02-13 13:10] LABS: ALBUMIN 3.8 G/DL (3.2-5.2); ALKALINE PHOSPHATASE 70 U/L (46-116); ALT/SGPT 42 U/L (7.0-40); AST/SGOT 21 U/L (<34); BILIRUBIN,TOTAL 0.5 MG/DL (0.3-1.2); BLOOD UREA NITROGEN 13 MG/DL (9-23); CALCIUM LEVEL 10.2 MG/DL (8.3-10.6); CARBON DIOXIDE LEVEL 33 MMOL/L (20-31); CHLORIDE LEVEL 103 MMOL/L (98-107); CREATININE FOR GFR 0.63 MG/DL (0.70-1.30); GLOMERULAR FILTRATION RATE > 60.0 (>42); GLUCOSE, FASTING 231 MG/DL (74-106); POTASSIUM SERUM 4.7 MMOL/L (3.5-5.1); SODIUM LEVEL 140 MMOL/L (136-145); TOTAL PROTEIN 6.9 G/DL (5.7-8.2)
== END ==
LOC: M WUC 09:39
PROVIDERS: ATTEND Internal Medicine Cardiovascular Disease
DX: I50.42 Chronic combined systolic (congestive) and diastolic (congestive) heart failure (principal); I11.0 Hypertensive heart disease with heart failure; I27.81 Cor pulmonale (chronic)